=== PATIENT | male | born 1940 | race Caucasian/White ===

== ENCOUNTER 2021-09-24 19:28 | Inpatient (IN) | payer MEDICARE, OTHER ==
[~2021-09-24] VITALS: Ht 182.9 cm; Wt 107.7 kg
[2021-09-24 21:05] LABS: Basophils # (auto) 0.1 10 ^3/uL (0-0.2); Basophils % (auto) 1.1 % (0.0-2.0); Eosinophils # (auto) 0.3 10 ^3/uL (0-0.8); Eosinophils % (auto) 3.9 % (0.0-7.0); Hemoglobin 9.7 g/dL (13.5-17.5); Lymphocytes # (auto) 0.2 10 ^3/uL (0.4-5.4); Lymphocytes % (auto) 3.3 % (10.0-50.0); Mean Corpuscular Hemoglobin 31.2 pg (28.0-32.0); Mean Corpuscular Hgb Conc. 33.4 g/dL (32.0-36.0); Mean Corpuscular Volume 93.4 fL (80.0-100.0); Monocytes # (auto) 0.4 10 ^3/uL (0-1.3); Monocytes % (auto) 5.2 % (0.0-12.0); Neutrophils # (auto) 6.3 10 ^3/uL (1.6-8.6); Neutrophils % (auto) 86.5 % (37.0-80.0); Nucleated Red Blood Cells % 0.1 %; White Blood Cell 7.3 10^3/uL (4.4-10.8)
[2021-09-24 21:14] LABS: Albumin 2.1 g/dL (3.4-5.0); Calcium 7.6 mg/dL (8.5-10.1); Magnesium 1.8 mg/dL (1.6-2.6); Potassium 3.4 mmol/L (3.5-5.1)
[2021-09-24 21:20] LABS: BUN/Creatinine Ratio 29.8; Bilirubin, Total 0.7 mg/dL (0.2-1.0); Total Protein 6.3 g/dL (6.4-8.2)
[2021-09-24] MEDS ORDERED: IOHEXOL 350 MG/ML 100ML IJ ONE (21:33)
[2021-09-25 01:50] LABS: Urine Bacteria NONE SEEN /hpf (None Seen); Urine Blood 2+ /uL (Negative); Urine Specific Gravity 1.022 (1.001-1.035); Urine WBC 1640 /hpf (0 - 3); Urine WBC Clumps PRESENT /hpf (None Seen)
[2021-09-25] MEDS ORDERED: cefTRIAXone 1GM/50ML D5W 50 ML IV ONE (02:45)
[2021-09-25] MEDS ORDERED: ONDANSETRON HCL 4 MG/2 ML VIAL IV PRN (03:30)
[2021-09-25] MEDS ORDERED: NITROGLYCERIN 0.4 MG SL TAB SL PRN (03:30)
[2021-09-25] MEDS ORDERED: CALCIUM GLUC 1,000mg/50ml-NS 50 ML IV ONE (03:30)
[2021-09-25] MEDS ORDERED: DABI150C5 PO (03:44)
[2021-09-25] MEDS ORDERED: VORT1TAB3 PO (03:44)
[2021-09-25] MEDS ORDERED: ALLO300T2 PO (03:44)
[2021-09-25] MEDS ORDERED: POTA10TA51 PO (03:44)
[2021-09-25] MEDS ORDERED: BUME1TAB25 PO (03:44)
[2021-09-25] MEDS ORDERED: PANT1INJ3 PO (03:44)
[2021-09-25] MEDS ORDERED: RANO1000 PO (03:44)
[2021-09-25] MEDS ORDERED: DULO60CA PO (03:44)
[2021-09-25] MEDS ORDERED: METO-158 PO (03:44)
[2021-09-25] MEDS ORDERED: PERCOT PO (03:44)
[2021-09-25] MEDS: MORPHINE SULFATE INJECTION 2 MG/ML SYRG IV PRN (04:40)
[2021-09-25 05:38] VITALS: BP 100/66
[2021-09-25 05:51] VITALS: BP 100/66
[2021-09-25 08:30] LABS: Potassium 3.3 mmol/L (3.5-5.1)
[2021-09-25 08:36] LABS: BUN/Creatinine Ratio 28.1; Calcium 8.6 mg/dL (8.5-10.1)
[2021-09-25 08:42] LABS: Basophils # (auto) 0.1 10 ^3/uL (0-0.2); Basophils % (auto) 1.1 % (0.0-2.0); Eosinophils # (auto) 0.4 10 ^3/uL (0-0.8); Eosinophils % (auto) 5.2 % (0.0-7.0); Hematocrit 31.5 % (41.0-53.0); Hemoglobin 10.4 g/dL (13.5-17.5); Lymphocytes # (auto) 0.4 10 ^3/uL (0.4-5.4); Lymphocytes % (auto) 4.4 % (10.0-50.0); Mean Corpuscular Hemoglobin 31.1 pg (28.0-32.0); Mean Corpuscular Hgb Conc. 33.1 g/dL (32.0-36.0); Mean Corpuscular Volume 93.7 fL (80.0-100.0); Monocytes # (auto) 0.5 10 ^3/uL (0-1.3); Monocytes % (auto) 5.3 % (0.0-12.0); Neutrophils # (auto) 7.3 10 ^3/uL (1.6-8.6); Red Blood Cells 3.36 10^6/uL (4.5-5.90); Red Cell Distribution Width 17.8 % (11.8-14.3); White Blood Cell 8.7 10^3/uL (4.4-10.8)
[2021-09-25 09:00] VITALS: BP 122/51
[2021-09-25] MEDS: cefTRIAXone 1GM/50ML D5W 50 ML IV SCH (09:50)
[2021-09-25] MEDS: DABIGATRAN 75 MG CAP PO SCH ×2 (09:50→22:00)
[2021-09-25] MEDS: METOPROLOL SUCCINATE XL 50 MG TAB PO SCH (09:51)
[2021-09-25] MEDS: PANTOPRAZOLE 40 MG TAB PO SCH (10:41)
[2021-09-25] MEDS: RANOLAZINE ER 500 MG TAB PO SCH ×2 (10:42→22:00)
[2021-09-25 13:00] VITALS: BP 123/43
[2021-09-25 17:00] VITALS: BP 116/63
[2021-09-25 22:00] VITALS: BP 129/76
[2021-09-26 05:00] VITALS: BP 129/69
[2021-09-26 06:09] LABS: Basophils # (auto) 0.1 10 ^3/uL (0-0.2); Basophils % (auto) 1.2 % (0.0-2.0); Eosinophils # (auto) 0.4 10 ^3/uL (0-0.8); Eosinophils % (auto) 5.1 % (0.0-7.0); Hematocrit 31.9 % (41.0-53.0); Hemoglobin 10.7 g/dL (13.5-17.5); Lymphocytes # (auto) 0.2 10 ^3/uL (0.4-5.4); Lymphocytes % (auto) 3.4 % (10.0-50.0); Mean Corpuscular Hemoglobin 31.2 pg (28.0-32.0); Mean Corpuscular Hgb Conc. 33.4 g/dL (32.0-36.0); Mean Corpuscular Volume 93.3 fL (80.0-100.0); Monocytes # (auto) 0.3 10 ^3/uL (0-1.3); Monocytes % (auto) 4.8 % (0.0-12.0); Neutrophils # (auto) 6.2 10 ^3/uL (1.6-8.6); Neutrophils % (auto) 85.5 % (37.0-80.0); Red Blood Cells 3.42 10^6/uL (4.5-5.90); Red Cell Distribution Width 17.7 % (11.8-14.3); White Blood Cell 7.2 10^3/uL (4.4-10.8)
[2021-09-26 06:26] LABS: Potassium 3.3 mmol/L (3.5-5.1)
[2021-09-26 06:46] LABS: Albumin 2.2 g/dL (3.4-5.0); BUN/Creatinine Ratio 27.1; Bilirubin, Total 0.8 mg/dL (0.2-1.0); Calcium 8.4 mg/dL (8.5-10.1); Total Protein 6.8 g/dL (6.4-8.2)
[2021-09-26 08:00] VITALS: BP_SYST 102; BP_SYST 113; BP_DIAS 50; BP_DIAS 59
[2021-09-26] MEDS: DABIGATRAN 75 MG CAP PO SCH ×2 (10:16→22:25)
[2021-09-26] MEDS: cefTRIAXone 1GM/50ML D5W 50 ML IV SCH (10:16)
[2021-09-26] MEDS: SODIUM CHLORIDE 0.9% 1,000 ML IV SCH ×2 (10:16→23:00)
[2021-09-26] MEDS: PANTOPRAZOLE 40 MG TAB PO SCH (10:17)
[2021-09-26] MEDS: RANOLAZINE ER 500 MG TAB PO SCH ×2 (10:17→22:25)
[2021-09-26] MEDS: METOPROLOL SUCCINATE XL 50 MG TAB PO SCH (10:18)
[2021-09-26 12:00] VITALS: BP 114/66
[2021-09-26 16:00] VITALS: BP 117/70
[2021-09-26 20:00] VITALS: BP 100/60
[2021-09-26 21:42] VITALS: BP 100/60
[2021-09-27] MEDS: ACETAMINOPHEN 325 MG TAB PO PRN (04:34)
[2021-09-27 05:11] VITALS: BP 116/72
[2021-09-27 06:16] LABS: % Iron Saturation 12.8 % (20-55)
[2021-09-27 06:17] LABS: Ferritin 244.1 ng/mL (10-322)
[2021-09-27] MEDS: SODIUM CHLORIDE 0.9% 1,000 ML IV SCH ×3 (07:00→20:31)
[2021-09-27 08:43] VITALS: BP 92/58
[2021-09-27 12:55] VITALS: BP 111/60
[2021-09-27 17:00] VITALS: BP 106/60
[2021-09-27] MEDS: cefTRIAXone 1GM/50ML D5W 50 ML IV SCH (18:09)
[2021-09-27] MEDS: BUMETANIDE 1 MG TAB PO SCH (18:09)
[2021-09-27] MEDS: DULoxetine HCL 30 MG CAP PO SCH (18:10)
[2021-09-27] MEDS: POTASSIUM CHL 10 Meq TABLET PO SCH (18:10)
[2021-09-27] MEDS: PANTOPRAZOLE 40 MG TAB PO SCH (18:11)
[2021-09-27] MEDS: RANOLAZINE ER 500 MG TAB PO SCH ×2 (18:11→21:46)
[2021-09-27] MEDS: ALLOPURINOL 300 MG TAB PO SCH (18:12)
[2021-09-27] MEDS: METOPROLOL SUCCINATE XL 50 MG TAB PO SCH (18:12)
[2021-09-27 21:44] VITALS: BP 121/69
[2021-09-28 05:00] VITALS: BP 112/64
[2021-09-28] MEDS: SODIUM CHLORIDE 0.9% 1,000 ML IV SCH ×3 (05:49→23:11)
[2021-09-28 09:00] VITALS: BP 119/80
[2021-09-28] MEDS: POTASSIUM CHL 10 Meq TABLET PO SCH (10:51)
[2021-09-28] MEDS: METOPROLOL SUCCINATE XL 50 MG TAB PO SCH ×2 (10:52→11:11)
[2021-09-28] MEDS: cefTRIAXone 1GM/50ML D5W 50 ML IV SCH (11:08)
[2021-09-28] MEDS: RANOLAZINE ER 500 MG TAB PO SCH ×2 (11:09→22:00)
[2021-09-28] MEDS: PANTOPRAZOLE 40 MG TAB PO SCH (11:09)
[2021-09-28] MEDS: DULoxetine HCL 30 MG CAP PO SCH (11:09)
[2021-09-28] MEDS: BUMETANIDE 1 MG TAB PO SCH (11:09)
[2021-09-28] MEDS: ALLOPURINOL 300 MG TAB PO SCH (11:10)
[2021-09-28] MEDS: ACETAMINOPHEN 325 MG TAB PO PRN (11:16)
[2021-09-28] MEDS: MORPHINE SULFATE INJECTION 2 MG/ML SYRG IV PRN ×2 (11:20→17:45)
[2021-09-28 13:00] VITALS: BP 101/47
[2021-09-28 17:00] VITALS: BP 103/69
[2021-09-28 22:00] VITALS: BP 103/53
[2021-09-29] VITALS (7 sets, daily range): BP systolic 86–130; BP diastolic 47–81
[2021-09-29] MEDS: ACETAMINOPHEN 325 MG TAB PO PRN ×2 (00:49→11:22)
[2021-09-29] MEDS: SODIUM CHLORIDE 0.9% 1,000 ML IV SCH (06:36)
[2021-09-29] MEDS: cefTRIAXone 1GM/50ML D5W 50 ML IV SCH (09:32)
[2021-09-29] MEDS: BUMETANIDE 1 MG TAB PO SCH (11:16)
[2021-09-29] MEDS: DULoxetine HCL 30 MG CAP PO SCH (11:20)
[2021-09-29] MEDS: RANOLAZINE ER 500 MG TAB PO SCH ×2 (11:20→21:39)
[2021-09-29] MEDS: PANTOPRAZOLE 40 MG TAB PO SCH (11:21)
[2021-09-29] MEDS: ALLOPURINOL 300 MG TAB PO SCH (11:21)
[2021-09-29] MEDS: POTASSIUM CHL 10 Meq TABLET PO SCH (11:23)
[2021-09-29 11:40] LABS: INR 1.31 (0.9-1.15); Partial Thromboplastin Time 32.8 sec (23.6-33.0)
[2021-09-29] MEDS: MORPHINE SULFATE INJECTION 2 MG/ML SYRG IV PRN (13:18)
[2021-09-29] MEDS: HYDROmorphone HCL 2 MG/ML VL IV PRN ×2 (13:47→20:19)
[2021-09-30] MEDS: HYDROmorphone HCL 2 MG/ML VL IV PRN ×4 (03:01→14:58)
[2021-09-30 05:00] VITALS: BP 111/61
[2021-09-30] MEDS: cefTRIAXone 1GM/50ML D5W 50 ML IV SCH (09:22)
[2021-09-30] MEDS: POTASSIUM CHL 10 Meq TABLET PO SCH (09:23)
[2021-09-30] MEDS: DULoxetine HCL 30 MG CAP PO SCH (09:23)
[2021-09-30] MEDS: PANTOPRAZOLE 40 MG TAB PO SCH (09:23)
[2021-09-30] MEDS: BUMETANIDE 1 MG TAB PO SCH (09:23)
[2021-09-30] MEDS: METOPROLOL SUCCINATE XL 50 MG TAB PO SCH (09:24)
[2021-09-30] MEDS: RANOLAZINE ER 500 MG TAB PO SCH ×2 (09:24→21:34)
[2021-09-30] MEDS: ALLOPURINOL 300 MG TAB PO SCH (09:25)
[2021-09-30] MEDS: ACETAMINOPHEN 325 MG TAB PO PRN ×2 (09:25→21:53)
[2021-09-30 09:32] VITALS: BP 117/75
[2021-09-30 12:28] VITALS: BP 96/75
[2021-09-30 16:32] VITALS: BP 99/59
[2021-09-30 22:00] VITALS: BP 96/64
[2021-10-01] VITALS (7 sets, daily range): BP systolic 60–112; BP diastolic 47–64
[2021-10-01] MEDS: HYDROmorphone HCL 2 MG/ML VL IV PRN ×2 (03:50→09:41)
[2021-10-01] MEDS: cefTRIAXone 1GM/50ML D5W 50 ML IV SCH (09:37)
[2021-10-01] MEDS: BUMETANIDE 1 MG TAB PO SCH (09:37)
[2021-10-01] MEDS: PANTOPRAZOLE 40 MG TAB PO SCH (09:38)
[2021-10-01] MEDS: DULoxetine HCL 30 MG CAP PO SCH (09:38)
[2021-10-01] MEDS: POTASSIUM CHL 10 Meq TABLET PO SCH (09:38)
[2021-10-01] MEDS: RANOLAZINE ER 500 MG TAB PO SCH ×2 (09:39→21:01)
[2021-10-01] MEDS: ALLOPURINOL 300 MG TAB PO SCH (09:40)
[2021-10-01] MEDS: METOPROLOL SUCCINATE XL 50 MG TAB PO SCH (09:40)
[2021-10-01] MEDS ORDERED: HYDROcodone-ACET 7.5/325MG TAB PO PRN (10:15)
[2021-10-01 10:23] LABS: Basophils # (auto) 0.1 10 ^3/uL (0-0.2); Basophils % (auto) 2.1 % (0.0-2.0); Eosinophils # (auto) 0.4 10 ^3/uL (0-0.8); Eosinophils % (auto) 6.9 % (0.0-7.0); Hematocrit 29.5 % (41.0-53.0); Hemoglobin 9.6 g/dL (13.5-17.5); Lymphocytes # (auto) 0.4 10 ^3/uL (0.4-5.4); Lymphocytes % (auto) 7.3 % (10.0-50.0); Mean Corpuscular Hemoglobin 30.8 pg (28.0-32.0); Mean Corpuscular Hgb Conc. 32.6 g/dL (32.0-36.0); Mean Corpuscular Volume 94.4 fL (80.0-100.0); Monocytes # (auto) 0.4 10 ^3/uL (0-1.3); Monocytes % (auto) 7.4 % (0.0-12.0); Neutrophils # (auto) 4.6 10 ^3/uL (1.6-8.6); Neutrophils % (auto) 76.3 % (37.0-80.0); Red Blood Cells 3.12 10^6/uL (4.5-5.90); Red Cell Distribution Width 17.7 % (11.8-14.3)
[2021-10-01 10:34] LABS: Albumin 1.9 g/dL (3.4-5.0); Potassium 4.4 mmol/L (3.5-5.1)
[2021-10-01 10:40] LABS: BUN/Creatinine Ratio 18.2; Bilirubin, Total 0.4 mg/dL (0.2-1.0); Total Protein 6.3 g/dL (6.4-8.2)
[2021-10-01] MEDS: OXYCODONE W/ ACETAMINOPHEN 5/325MG TABLET PO PRN ×2 (12:37→19:42)
[2021-10-02] VITALS (7 sets, daily range): BP systolic 95–111; BP diastolic 50–70
[2021-10-02] MEDS: ACETAMINOPHEN 325 MG TAB PO PRN (00:20)
[2021-10-02] MEDS: OXYCODONE W/ ACETAMINOPHEN 5/325MG TABLET PO PRN ×4 (02:41→21:37)
[2021-10-02] MEDS: cefTRIAXone 1GM/50ML D5W 50 ML IV SCH (09:06)
[2021-10-02] MEDS: DULoxetine HCL 30 MG CAP PO SCH (09:58)
[2021-10-02] MEDS: BUMETANIDE 1 MG TAB PO SCH (09:58)
[2021-10-02] MEDS: POTASSIUM CHL 10 Meq TABLET PO SCH (09:59)
[2021-10-02] MEDS: PANTOPRAZOLE 40 MG TAB PO SCH (10:01)
[2021-10-02] MEDS: RANOLAZINE ER 500 MG TAB PO SCH ×2 (10:01→21:36)
[2021-10-02] MEDS: ALLOPURINOL 300 MG TAB PO SCH (10:02)
[2021-10-02] MEDS: METOPROLOL SUCCINATE XL 50 MG TAB PO SCH (10:02)
[2021-10-02] MEDS ORDERED: LIDOCAINE 2% JELLY 11ml (GLYDO) UR ONE (10:15)
[2021-10-02] MEDS: BELLADONNA ALKAL/OPIUM (16.2/30MG) RECT SUPP PR SCH (21:37)
[2021-10-03] MEDS: OXYCODONE W/ ACETAMINOPHEN 5/325MG TABLET PO PRN ×3 (04:54→17:49)
[2021-10-03 05:00] VITALS: BP 114/69
[2021-10-03 06:00] VITALS: BP 128/76
[2021-10-03 08:00] VITALS: BP 128/76
[2021-10-03] MEDS: cefTRIAXone 1GM/50ML D5W 50 ML IV SCH (09:54)
[2021-10-03] MEDS: RANOLAZINE ER 500 MG TAB PO SCH ×2 (09:55→21:35)
[2021-10-03] MEDS: DULoxetine HCL 30 MG CAP PO SCH (09:55)
[2021-10-03] MEDS: POTASSIUM CHL 10 Meq TABLET PO SCH (09:55)
[2021-10-03] MEDS: PANTOPRAZOLE 40 MG TAB PO SCH (09:55)
[2021-10-03] MEDS: ALLOPURINOL 300 MG TAB PO SCH (09:55)
[2021-10-03] MEDS: BUMETANIDE 1 MG TAB PO SCH (09:57)
[2021-10-03] MEDS: METOPROLOL SUCCINATE XL 50 MG TAB PO SCH (09:57)
[2021-10-03] MEDS: BELLADONNA ALKAL/OPIUM (16.2/30MG) RECT SUPP PR SCH ×2 (10:00→21:41)
[2021-10-03 12:00] VITALS: BP 106/60
[2021-10-03 16:00] VITALS: BP 106/57
[2021-10-03] MEDS: DABIGATRAN 75 MG CAP PO SCH (21:35)
[2021-10-03 22:00] VITALS: BP 96/52
[2021-10-03] MEDS ORDERED: CALCIUM CARB 500 MG CHEW TAB PO ONE (22:45)
[2021-10-04] VITALS (7 sets, daily range): BP systolic 91–111; BP diastolic 49–73
[2021-10-04] MEDS: OXYCODONE W/ ACETAMINOPHEN 5/325MG TABLET PO PRN ×3 (00:14→18:19)
[2021-10-04] MEDS: cefTRIAXone 1GM/50ML D5W 50 ML IV SCH (10:55)
[2021-10-04] MEDS: DOCUSATE SOD 100 MG CAP PO SCH ×2 (10:56→22:01)
[2021-10-04] MEDS: DULoxetine HCL 30 MG CAP PO SCH (10:56)
[2021-10-04] MEDS: POTASSIUM CHL 10 Meq TABLET PO SCH (10:56)
[2021-10-04] MEDS: BUMETANIDE 1 MG TAB PO SCH (10:56)
[2021-10-04] MEDS: DABIGATRAN 75 MG CAP PO SCH ×2 (10:56→22:05)
[2021-10-04] MEDS: METOPROLOL SUCCINATE XL 50 MG TAB PO SCH (10:57)
[2021-10-04] MEDS: PANTOPRAZOLE 40 MG TAB PO SCH (10:57)
[2021-10-04] MEDS: ALLOPURINOL 300 MG TAB PO SCH (10:57)
[2021-10-04] MEDS: RANOLAZINE ER 500 MG TAB PO SCH ×2 (10:57→22:00)
[2021-10-04] MEDS: ACETAMINOPHEN 325 MG TAB PO PRN (22:01)
[2021-10-05 05:00] VITALS: BP 136/70
[2021-10-05] MEDS: OXYCODONE W/ ACETAMINOPHEN 5/325MG TABLET PO PRN (06:51)
[2021-10-05] MEDS: cefTRIAXone 1GM/50ML D5W 50 ML IV SCH (10:47)
[2021-10-05] MEDS: DULoxetine HCL 30 MG CAP PO SCH (10:48)
[2021-10-05] MEDS: DOCUSATE SOD 100 MG CAP PO SCH (10:48)
[2021-10-05] MEDS: POTASSIUM CHL 10 Meq TABLET PO SCH (10:48)
[2021-10-05] MEDS: BUMETANIDE 1 MG TAB PO SCH (10:48)
[2021-10-05] MEDS: PANTOPRAZOLE 40 MG TAB PO SCH (10:49)
[2021-10-05] MEDS: ALLOPURINOL 300 MG TAB PO SCH (10:49)
[2021-10-05] MEDS: METOPROLOL SUCCINATE XL 50 MG TAB PO SCH (10:49)
[2021-10-05] MEDS: RANOLAZINE ER 500 MG TAB PO SCH (10:49)
[2021-10-05] MEDS: DABIGATRAN 75 MG CAP PO SCH (10:50)
[2021-10-05] MEDS ORDERED: RANO1000 PO (11:48)
[2021-10-05] MEDS ORDERED: DOCU-94 PO ×2 (11:48)
[2021-10-05] MEDS ORDERED: METO10TA7 PO (11:48)
[2021-10-05] MEDS ORDERED: BUME1TAB25 PO (11:48)
[2021-10-05] MEDS ORDERED: PANT40T PO (11:48)
[2021-10-05] MEDS ORDERED: POTA10TA51 PO (11:48)
[2021-10-05] MEDS ORDERED: OXY10CRT PO (11:48)
[2021-10-05] MEDS ORDERED: ALL300T PO (11:48)
[2021-10-05] MEDS ORDERED: VORT1TAB3 PO (11:48)
[2021-10-05] MEDS ORDERED: DULO60CA PO (11:48)
[2021-10-05] MEDS ORDERED: METO25TA5 PO (11:48)
[2021-10-05] MEDS ORDERED: DABI150C5 PO (11:48)
== END 2021-10-05 15:43 | disposition hospice, home (50) | DRG 871 ==
LOC: EDBD 19:28 → ER 19:33 → TELE 09-25 03:20 → TELE-CENTR 09-25 04:57 → TELE 09-29 13:44 → TELE-CENTR 09-29 13:51 → TELE 09-30 17:42 → TELE-CENTR 09-30 17:49
PROVIDERS: ADMIT Nurse Practitioner; ATTEND Family Medicine
DX: A41.9 Sepsis, unspecified organism (principal); G93.41 Metabolic encephalopathy; E43 Unspecified severe protein-calorie malnutrition; J96.11 Chronic respiratory failure with hypoxia; N13.6 Pyonephrosis; C78.7 Secondary malignant neoplasm of liver and intrahepatic bile duct; C67.9 Malignant neoplasm of bladder, unspecified; D64.9 Anemia, unspecified; I10 Essential (primary) hypertension; I27.21 Secondary pulmonary arterial hypertension; Z20.822 Contact with and (suspected) exposure to COVID-19; R59.1 Generalized enlarged lymph nodes; I25.10 Atherosclerotic heart disease of native coronary artery without angina pectoris; F32.A Depression, unspecified; I48.91 Unspecified atrial fibrillation; Z51.5 Encounter for palliative care; Z68.30 Body mass index [BMI] 30.0-30.9, adult; Z79.899 Other long term (current) drug therapy; Z85.51 Personal history of malignant neoplasm of bladder; Z92.3 Personal history of irradiation; Z95.2 Presence of prosthetic heart valve; Z88.7 Allergy status to serum and vaccine
CPT/HCPCS: 36415; 36600; 70450; 71045; 71275; 74176; 76705; 78306; 80048; 80053; 81001; 82607; 82728; 82805; 82962; 83540; 83550; 83605; 83615; 83735; 83880; 84484; 85025; 85045; 85610; 85730; 87040; 87086; 93005; 93306; 96365; 96367; 96375; 97110; 97116; 97163; 97530; G0378; J0696

== ENCOUNTER 2021-10-08 18:29 | Emergency (ER) | payer MEDICARE, OTHER ==
[~2021-10-08] VITALS: Ht 185.4 cm; Wt 108.9 kg
[~2021-10-08 18:29] MED LIST: ALL300T PO; ALLO300T2 PO; BUME1TAB25 PO; DABI150C5 PO; DOCU-94 PO; DULO60CA PO; METO-158 PO; METO10TA7 PO; METO25TA5 PO; OXY10CRT PO; PANT1INJ3 PO; PANT40T PO; PERCOT PO; POTA10TA51 PO; RANO1000 PO; VORT1TAB3 PO
[2021-10-08] MEDS ORDERED: LIDOCAINE 2% JELLY 11ml (GLYDO) ONE (20:40)
[2021-10-08] MEDS ORDERED: LIDOCAINE 2% JELLY 11ml (GLYDO) UR ONE (20:45)
[2021-10-08] MEDS ORDERED: HYDROmorphone HCL 2 MG TAB PO ONE (20:45)
[2021-10-08 23:07] VITALS: BP 105/61
== END 2021-10-08 23:10 | disposition home or self-care (01) ==
LOC: EDBD 18:29 → EDUNIT# 18:29 → ER 18:32
DX: T83.091A Other mechanical complication of indwelling urethral catheter, initial encounter (principal); I48.91 Unspecified atrial fibrillation; Z85.51 Personal history of malignant neoplasm of bladder; Z85.89 Personal history of malignant neoplasm of other organs and systems
CPT/HCPCS: 51702; 93005